=== PATIENT | female | born 1975 | race Caucasian/White ===

== ENCOUNTER → 2020-09-12 13:55 | Outpatient (REF) | payer MEDICAID, SELFPAY | LOC: HO.SL 13:55 | PROVIDERS: PCP Internal Medicine; Visit Provider Internal Medicine | DX: G47.10 Hypersomnia, unspecified (principal); R06.81 Apnea, not elsewhere classified | CPT/HCPCS: 95806 ==

== ENCOUNTER → 2021-04-22 13:57 | Outpatient (BNVA) | payer MEDICAID, SELFPAY | PROVIDERS: PCP Internal Medicine | DX: F17.210 Nicotine dependence, cigarettes, uncomplicated (principal); Z87.898 Personal history of other specified conditions | CPT/HCPCS: 99212 ==

== ENCOUNTER 2021-06-27 15:40 | Emergency (ER) | payer MEDICAID, SELFPAY ==
--- NOTE | 2021-06-27 | ECG_ITS ---
Test Reason : dizzyness Blood Pressure : / mmHG Vent. Rate : 062 BPM Atrial Rate : 062 BPM P-R Int : 138 ms QRS Dur : 090 ms QT Int : 394 ms P-R-T Axes : -16 060 033 degrees QTc Int : 399 ms Normal sinus rhythm Normal ECG When compared with ECG of 07-DEC-2014 03:18, Vent. rate has decreased BY 35 BPM QT has shortened Referred By: Generic ED Physician Electronically Signed By:CHARLOTTE WILLIAM MD
[2021-06-27 15:45] VITALS: BP 167/96; PULSE 80; RESP 16; TEMP 36.4; O2SAT 99; BMI 25.2
[2021-06-27 19:23] LABS: MANUAL DIFF FLAG NO
[2021-06-27 19:25] LABS: Basophils Absolute Auto 0.1 X10*3/uL (0.0-0.2); Basophils Percent Auto 0.4 % (0-2); Eosinophils Absolute Auto 0.1 X10*3/uL (0.0-0.4); Eosinophils Percent Auto 0.4 % (0-4); Hematocrit 38.6 % (37.0-47.0); Hemoglobin 12.8 g/dl (12.0-16.0); Imm Gran Abs Auto 0.05 X10*3/uL (0.00-0.03); Imm Gran Pct Auto 0.4 % (0.0-0.4); Lymphocytes Absolute Auto 2.6 X10*3/uL (1.2-4.9); Lymphocytes Percent Auto 18.5 % (20-40); Mean Corpuscular HGB Conc 33.2 g/dl (31.0-35.0); Mean Corpuscular Hemoglobin 31.4 pg (27.0-33.0); Mean Corpuscular Volume 94.6 fL (80.0-98.0); Mean Platelet Volume 8.8 fL (9.4-12.3); Monocytes Absolute Auto 0.6 X10*3/uL (0.1-1.2); Neutrophils Absolute Auto 10.5 x10*3/uL (2.0-8.3); Neutrophils Percent Auto 76.3 % (45-73); Platelet Count 318 X10*3/uL (160-400); Red Blood Count 4.08 X10*6/uL (4.20-5.50); Red Cell Distribution Width 12.9 % (11.0-16.0); White Blood Count 13.8 X10*3/uL (4.8-10.8)
[2021-06-27 19:38] LABS: Anion Gap 12 (12-20); Blood Urea Nitrogen 12 mg/dL (9-16); COVID-19 Test Negative (Negative); Calcium 9.9 mg/dL (8.4-10.2); Carbon Dioxide 28 mmol/L (22-29); Chloride 105 mmol/L (96-108); Creatinine Clr Calc Pharmacy 94.6; Estimated Glomerular Filt Rate > 60; Glucose Random 123 mg/dL (60-115); Potassium 4.9 mmol/L (3.3-5.1); Sodium 140 mmol/L (135-145)
--- NOTE | 2021-06-27 19:52 | ED.GENADULT ---
HPI - General Adult General Chief complaint: Dizziness Stated complaint: shaky,just doesnt feel right Time Seen by Provider: 06/27/21 19:40 Source: patient Mode of arrival: ambulatory Limitations: no limitations History of Present Illness HPI narrative: 45 yo female with a history of former alcohol use, anxiety, depression, high blood pressure here with reports of feeling dizzy, weak, lightheaded and shaky which occurred around 145 this afternoon. Patient tells me now she is feeling improved although overall tired. She denies any associated chest pain, shortness of breath, palpitations, headache, vomiting at the time of this episode. She tells me she has been eating and drinking normally. She has been taking her medications as prescribed. 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 Related Data Previous Rx's Medication Instructions Recorded oxybutynin chloride 10 mg 10 mg PO BID 90 Days #180 tab 04/29/21 tablet,extended release 24 hr nitrofurantoin 100 mg PO Q12H 5 Days #10 cap 06/27/21 monohydrate/macrocrystals 100 mg capsule (Macrobid) Allergies Allergy/AdvReac Type Severity Reaction Status Date / Time No Known Allergies Allergy Unverified 06/27/21 15:45 Review of Systems Review of Systems: Yes all other systems are reviewed and are negative Constitutional: Constitutional: Reports no additional constitutional complaints, Denies body ache(s), Denies chills, Denies fever(s), Denies headache(s) and Reports weakness Eyes: Eyes: Reports no additional eye complaints and Denies change in vision ENT: Reports system reviewed and no additional complaints, except as documented, Reports dizziness, Denies headache(s), Denies nasal congestion, Denies nasal discharge and Denies neck pain Cardiovascular: Cardiovascular: Reports no additional cardiovascular complaints, Denies chest pain, Denies leg edema and Denies dyspnea Respiratory: Respiratory: Reports no additional respiratory complaints, Denies cough and Denies dyspnea Gastrointestinal: Gastrointestinal: Reports no additional gastrointestinal complaints, Denies abdominal pain, Denies diarrhea, Denies nausea and Denies vomiting Genitourinary: Genitourinary: Reports no additional female genitourinary complaints and Denies urinary incontinence Musculoskeletal: Musculoskeletal: Reports no additional musculoskeletal complaints, Denies back pain, Denies arthralgias, Denies joint swelling, Denies neck pain, Denies numbness and Denies tingling Integumentary/Breasts: Skin/Breast: Reports system reviewed and no additional complaints, except as docu and Denies rash Neurologic: Reports system reviewed and no additional complaints, except as documented, Reports dizziness, Denies headache(s), Denies numbness, Denies tingling and Reports weakness PMFSH Past Medical History Attestation statement: The following information was validated with the patient. Source: old records reviewed and nursing notes reviewed Medical History History of nocturia Social History Social History Alcohol intake: former Use of substances other than those prescribed or required for medical reasons: Yes Substance Use Type: Marijuana Substance Use Frequency: Occasionally Last Used Substance: Unknown Advance Directives: No Advance Directives Information Provided: No Physical Exam ED Vital Signs: Vital Signs - 24 hr 06/27/21 15:45 06/27/21 20:22 Temperature 97.6 F 99.1 F Pulse Rate 80 64 Respiratory Rate 16 18 Blood Pressure 167/96 H 156/88 H Pulse Oximetry 99 98 BMI result Body Mass Index 25.2 Const General: cooperative, healthy appearing, comfortable and no acute distress Orientation/consciousness: patient oriented x3 Limitations: no limitations HENMT Head: Yes normal to inspection Ears: hearing grossly normal bilaterally and TM's normal bilaterally General nose exam: Normal external nose present Face and sinus: Yes normal facial exam Mouth: Normal oral and palatal mucosa present Throat: Yes posterior oropharynx normal, Yes tonsils normal and Yes uvula midline Eyes General: appearance normal, both eyes and all related structures Pupils: Equal, round and reactive pupils present Neck Neck: Yes normal visual inspection, Yes full ROM, Yes no lymphadenopathy and Yes no meningeal signs Chest Chest palpation & inspection: normal inspection of the chest Resp Effort & Inspection: normal respiratory effort Auscultation: clear to auscultation bilaterally Cardio Rate: regular rate Rhythm: regular rhythm Peripheral pulses: Peripheral pulses 2+ throughout GI Inspection: Yes normal to inspection Palpation (GI): Soft to palpation and nontender General: Yes no CVA tenderness Back/Spine/Pelvis Back: no CVA tenderness Thoracic/Lumbar Spine: thoracic and lumbar spine normal to inspection Skin General skin exam: no rashes or lesions noted Neuro General: patient oriented x3, moves all extremities and no meningeal signs Cranial nerves: Yes CN's II-XII intact bilaterally, Yes Equal, round and reactive pupils present, Yes Bilaterally intact EOM present, Yes Nystagmus not present, Yes Normal facial strength present and Yes Midline tongue present Cognition (Neuro): normal cognition Gait exam (Neuro): Normal gait present Motor exam (neuro): 5/5 motor strength present throughout Sensory Exam: Normal double simultaneous stimulation for sensation Coordination: [id number] test normal, [id number] test normal and tandem gait normal Extrem General: Yes normal to inspection, Yes no pedal edema and Yes no calf tenderness Course Course Course Narrative: 45-year-old female here with episode of dizziness, weakness, feeling shaky and lightheaded which occurred around 1:45 this afternoon and self-resolved without any intervention. Patient is now feeling tired but no other complaints. Will check labs, EKG, UA, COVID screen. Vitals are stable. Normal neurological exam. Nonfocal on exam. 2130-labs unremarkable. EKG shows no ischemic changes. COVID screen is negative. UA is consistent with UTI. Patient denies any symptoms we will treat with course of antibiotics. Overall she is feeling improved. I did recommend she follow-up with her primary care doctor. Reviewed worrisome signs and symptoms of when to return to the emergency department. Comfortable discharge home. Medical Decision Making MDM Narrative Medical decision making narrative: Less likely ACS with negative troponin, normal EKG and symptoms greater than 6 hours ago Less likely ICH versus CVA with normal neurological exam and resolved symptoms which were nonfocal and atypical for of the above Medical Records Medical records reviewed: Yes I reviewed the patient's medical records. Lab Data Lab results reviewed: Yes I reviewed the patient's lab results. Result diagrams: 06/27/21 19:19 06/27/21 19:19 Labs: Lab Results 06/27/21 06/27/21 06/27/21 Range/Units 19:19 19:19 19:19 WBC 13.8 H (4.8-10.8) X10*3/uL RBC 4.08 L (4.20-5.50) X10*6/uL Hgb 12.8 (12.0-16.0) g/dl Hct 38.6 (37.0-47.0) % MCV 94.6 (80.0-98.0) fL MCH 31.4 (27.0-33.0) pg MCHC 33.2 (31.0-35.0) g/dl RDW 12.9 (11.0-16.0) % Plt Count 318 (160-400) X10*3/uL MPV 8.8 L (9.4-12.3) fL Immature Gran % (Auto) 0.4 (0.0-0.4) % Neut % (Auto) 76.3 H (45-73) % Lymph % (Auto) 18.5 L (20-40) % Smyth % (Auto) 4.0 (2-11) % Eos % (Auto) 0.4 (0-4) % Baso % (Auto) 0.4 (0-2) % Lymph # (Auto) 2.6 (1.2-4.9) X10*3/uL Smyth # (Auto) 0.6 (0.1-1.2) X10*3/uL Eos # (Auto) 0.1 (0.0-0.4) X10*3/uL Baso # (Auto) 0.1 (0.0-0.2) X10*3/uL Abs Immat Gran (auto) 0.05 H (0.00-0.03) X10*3/uL Absolute Neuts (auto) 10.5 H (2.0-8.3) x10*3/uL Absolute Nucleated RBC 0.000 (0.0-0.012) X10*3/uL Nucleated RBC % (auto) 0.0 (0.0-0.2) /100WBC Sodium 140 (135-145) mmol/L Potassium 4.9 (3.3-5.1) mmol/L Chloride 105 (96-108) mmol/L Carbon Dioxide 28 (22-29) mmol/L Anion Gap 12 (12-20) BUN 12 (9-16) mg/dL Creatinine 0.69 (0.5-1.4) mg/dL Estim Creat Clear Calc 94.6 Estimated GFR > 60 Random Glucose 123 H (60-115) mg/dL Calcium 9.9 (8.4-10.2) mg/dL Total Bilirubin 0.5 (0.0-1.0) mg/dL Direct Bilirubin 0.2 (0.0-0.5) mg/dL AST 16 (5-31) U/L ALT 16 (0-31) U/L Alkaline Phosphatase 51 (39-117) U/L Troponin I High Sens (<3.5-17.0) ng/L Total Protein 7.2 (6.5-8.0) g/dL Albumin 4.6 (3.5-5.0) g/dL Urine Color Urine Appearance Urine pH (5.0-8.0) Ur Specific [place] (1.005-1.025) Urine Protein (NEG-TRACE) MG/DL Urine Glucose (UA) (NEG) MG/DL Urine Ketones (NEG) MG/DL Urine Blood (NEG) Urine Nitrite (NEG) Ur Leukocyte Esterase (NEG) Urine RBC (0) /HPF Urine WBC (0-4) /HPF Ur Squamous Epith Cells /LPF Amorphous Sediment /LPF Urine Bacteria /LPF COVID-19 (MABEL) Negative (Negative) COVID-19 Clin Com See Note 06/27/21 06/27/21 Range/Units 19:19 20:25 WBC (4.8-10.8) X10*3/uL RBC (4.20-5.50) X10*6/uL Hgb (12.0-16.0) g/dl Hct (37.0-47.0) % MCV (80.0-98.0) fL MCH (27.0-33.0) pg MCHC (31.0-35.0) g/dl RDW (11.0-16.0) % Plt Count (160-400) X10*3/uL MPV (9.4-12.3) fL Immature Gran % (Auto) (0.0-0.4) % Neut % (Auto) (45-73) % Lymph % (Auto) (20-40) % Smyth % (Auto) (2-11) % Eos % (Auto) (0-4) % Baso % (Auto) (0-2) % Lymph # (Auto) (1.2-4.9) X10*3/uL Smyth # (Auto) (0.1-1.2) X10*3/uL Eos # (Auto) (0.0-0.4) X10*3/uL Baso # (Auto) (0.0-0.2) X10*3/uL Abs Immat Gran (auto) (0.00-0.03) X10*3/uL Absolute Neuts (auto) (2.0-8.3) x10*3/uL Absolute Nucleated RBC (0.0-0.012) X10*3/uL Nucleated RBC % (auto) (0.0-0.2) /100WBC Sodium (135-145) mmol/L Potassium (3.3-5.1) mmol/L Chloride (96-108) mmol/L Carbon Dioxide (22-29) mmol/L Anion Gap (12-20) BUN (9-16) mg/dL Creatinine (0.5-1.4) mg/dL Estim Creat Clear Calc Estimated GFR Random Glucose (60-115) mg/dL Calcium (8.4-10.2) mg/dL Total Bilirubin (0.0-1.0) mg/dL Direct Bilirubin (0.0-0.5) mg/dL AST (5-31) U/L ALT (0-31) U/L Alkaline Phosphatase (39-117) U/L Troponin I High Sens < 3.5 (<3.5-17.0) ng/L Total Protein (6.5-8.0) g/dL Albumin (3.5-5.0) g/dL Urine Color YELLOW Urine Appearance HAZY Urine pH 7.0 (5.0-8.0) Ur Specific [place] 1.015 (1.005-1.025) Urine Protein NEG (NEG-TRACE) MG/DL Urine Glucose (UA) NEG (NEG) MG/DL Urine Ketones NEG (NEG) MG/DL Urine Blood TRACE (NEG) Urine Nitrite NEG (NEG) Ur Leukocyte Esterase 3+ H (NEG) Urine RBC 0-2 (0) /HPF Urine WBC 5-9 H (0-4) /HPF Ur Squamous Epith Cells 3+ /LPF Amorphous Sediment TRACE /LPF Urine Bacteria 1+ /LPF COVID-19 (MABEL) (Negative) COVID-19 Clin Com ECG Data Attestation: I personally reviewed and interpreted this ECG as follows: Interpretation: Normal sinus rhythm with a rate of 62, normal HI, normal QRS, normal QT Discharge Plan Discharge Clinical Impression: Dizziness, UTI (urinary tract infection) Patient Disposition: Home, Self-Care Instructions: Urinary Tract Infection in Women (DC), Lightheadedness (ED) Additional Instructions: Your lab work, EKG are all normal. Her urine does show signs of infection. You are prescribed an antibiotic. Increase fluids and rest. Please follow-up with primary care doctor in 1-2 weeks Prescriptions: New nitrofurantoin monohyd/m-cryst [Macrobid] 100 mg capsule 100 mg PO Q12H 5 Days Qty: 10 0RF Rx Instructions: must administer with a meal/food No Action oxybutynin chloride 10 mg tablet extended release 24hr 10 mg PO BID 90 Days Qty: 180 2RF Referrals: Jhoana Gamez MD [Primary Care Provider] - 1 week (For re-evaluation) Stand Alone Forms: Work/School Release Interventions: ED Discharge Assessment Last Done: 06/27/21 21:23 Discharge Date/Time: 06/27/21 21:23
[2021-06-27 20:22] VITALS: BP 156/88; PULSE 64; RESP 18; TEMP 37.3; O2SAT 98
[2021-06-27 20:40] LABS: Appearance Urine HAZY; Color Urine YELLOW; Glucose Urine UA NEG (NEG); Leukocyte Esterase Urine 3+ (NEG); Nitrite Urine NEG (NEG); Specific Gravity - Urine 1.015 (1.005-1.025); UACC Culture Trigger YES; Urine Blood TRACE (NEG); Urine Ketones NEG (NEG); Urine Protein NEG (NEG-TRACE)
[2021-06-27 20:47] LABS: Alanine Aminotransferase 16 U/L (0-31); Albumin Level 4.6 g/dL (3.5-5.0); Alkaline Phosphatase 51 U/L (39-117); Aspartate Amino Transferase 16 U/L (5-31); Bilirubin Direct 0.2 mg/dL (0.0-0.5); Bilirubin Total 0.5 mg/dL (0.0-1.0); Total Protein 7.2 g/dL (6.5-8.0)
[2021-06-27 20:49] LABS: Bacteria Urine 1+ /LPF; Squamous Epithelial Cell Urine 3+ /LPF
[2021-06-27 20:50] LABS: Amorphous Sediment Urine TRACE /LPF; RBC Urine 0-2 /HPF (0)
[2021-06-27 20:55] LABS: Troponin-I High Sensitivity < 3.5 ng/L (<3.5-17.0)
== END 2021-06-27 21:23 | disposition home or self-care (01) ==
PROVIDERS: Nurse Practitioner Family; Emergency Provider Emergency Medicine Emergency Medical Services; PCP Internal Medicine
DX: N39.0 Urinary tract infection, site not specified (principal); R42 Dizziness and giddiness; Z20.822 Contact with and (suspected) exposure to COVID-19
CPT/HCPCS: 80048; 80076; 81001; 84484; 85025; 87086; 87635; 93005; 99283; 99285

== ENCOUNTER 2021-08-13 15:14 | Outpatient (REF) | payer MEDICAID, SELFPAY ==
--- NOTE | ~2021-08-13 | MM_ITS ---
EXAMINATION: MM SCREENING DIGITAL BREAST TOMOSYNTHESIS, BILATERAL CLINICAL INFORMATION: Screening. Asymptomatic. The lifetime risk of breast cancer based on the Tyrer-Cuzick Model is 11%. COMPARISON: Mammography: 01/24/2019, 01/11/2018, 10/25/2012 TECHNIQUE: Digital breast tomosynthesis is performed in both the craniocaudal and mediolateral oblique views along with computer-aided detection (CAD). Synthesized 2D images are generated from the tomosynthesis. FINDINGS: The breasts are heterogeneously dense, which may obscure small masses (ACR BI-RADS breast composition Category c). There are no significant masses, abnormal calcifications, or other abnormalities. There are scattered shifting fibroglandular parenchymal densities overall similar to prior studies. No developing density or interval architectural abnormality. The axilla and skin contours are unremarkable. MM/MM tomosynthesis screening BI IMPRESSION: No mammographic evidence of malignancy. ASSESSMENT: BI-RADS 1: Negative RECOMMENDATION: Routine annual mammography screening. This patient's information was entered into a reminder system with a target due date for their next mammogram.
== END 2021-08-13 15:15 | disposition home or self-care (01) ==
LOC: HO.MAMMO 15:14
PROVIDERS: Visit Provider Internal Medicine
DX: Z12.31 Encounter for screening mammogram for malignant neoplasm of breast (principal)
CPT/HCPCS: 77063; 77067

== ENCOUNTER 2021-09-03 14:16 | Outpatient (REF) | payer MEDICAID, SELFPAY ==
[2021-09-04 14:39] LABS: CT PCR NOT DETECTED (Not Detect.); NG PCR NOT DETECTED (Not Detect.)
[2021-09-05 09:17] LABS: BV Int Neg Control Negative (Negative); BV Int Pos Control Positive (Positive)
[2021-09-11 01:12] LABS: HPV 16 RNA NOT DETECTED (NOT DETECTED); HPV mRNA E6/E7 rflx Detected (Not Detected)
== END 2021-09-03 14:17 | disposition home or self-care (01) ==
LOC: HO.LAB 14:16
PROVIDERS: PCP Internal Medicine; Visit Provider Advanced Practice Midwife
DX: Z01.411 Encounter for gynecological examination (general) (routine) with abnormal findings (principal); Z11.51 Encounter for screening for human papillomavirus (HPV); R10.2 Pelvic and perineal pain; N89.8 Other specified noninflammatory disorders of vagina
CPT/HCPCS: 87480; 87491; 87510; 87591; 87624; 87625; 87660; 88142

== ENCOUNTER 2021-10-15 13:43 | Outpatient (REF) | payer MEDICAID, SELFPAY | END 2021-10-15 13:44 | disposition home or self-care (01) | LOC: HO.LAB 13:43 | PROVIDERS: PCP Internal Medicine; Visit Provider Obstetrics & Gynecology | DX: R87.610 Atypical squamous cells of undetermined significance on cytologic smear of cervix (ASC-US) (principal); R87.810 Cervical high risk human papillomavirus (HPV) DNA test positive | CPT/HCPCS: 57454; 88305 ==

== ENCOUNTER → 2021-11-06 12:49 | Outpatient (BNVA) | payer MEDICAID, SELFPAY | PROVIDERS: PCP Internal Medicine; Visit Provider Obstetrics & Gynecology | DX: N87.0 Mild cervical dysplasia (principal) | CPT/HCPCS: 99212 ==

== ENCOUNTER 2021-11-19 11:20 | Outpatient (REF) | payer MEDICAID, SELFPAY ==
--- NOTE | ~2021-11-19 | US_ITS ---
EXAMINATION: US PELVIS CLINICAL INFORMATION: Pelvic and perineal pain. History of endometrial ablation. COMPARISON: None TECHNIQUE: Ultrasound of the pelvis is performed using both transabdominal and transvaginal transducers along with Doppler. Transvaginal imaging is performed due to inadequate visualization transabdominally. FINDINGS: Uterus: The uterus is anteverted and measures 7.4 cm in length, 3.8 cm in AP, and 4.7 cm in transverse dimension. The double wall endometrium is not visualized due to previous ablation. There are small nabothian cysts seen in the cervix. The uterus is smooth in contour and has normal myometrial echogenicity. No visible fibroid. Adnexa: Both ovaries are visualized. There is normal color-flow to the adnexa. There is no ovarian torsion. There is no pelvic ascites or fluid collection. Right ovary measures 2.7 x 1.4 x 1.6 cm and volume 3.2 mL. There is an anechoic cyst measuring 0.8 x 0.5 x 0.8 cm. Previously, the right ovary measured 2.4 x 1.3 x 2.6 cm. Left ovary measures 3.1 x 2.0 x 2.9 cm and volume 9.4 mL. There is an anechoic cyst measuring 2.7 x 1.7 x 2.1 cm. Previously, the left ovary measured 3.3 x 2.3 x 3.1 cm. There is no free fluid in the cul-de-sac. US/US pelvic and transvaginal IMPRESSION: Bilateral ovarian cysts. Small nabothian cysts in the cervix. The uterus is unremarkable. The endometrium is not visualized due to previous endometrial ablation.
== END 2021-11-19 11:21 | disposition home or self-care (01) ==
LOC: HO.US 11:20
PROVIDERS: Visit Provider Advanced Practice Midwife
DX: R10.2 Pelvic and perineal pain (principal)
CPT/HCPCS: 76830; 76856

== ENCOUNTER 2022-02-05 09:15 | Day surgery (SDC) | payer MEDICAID, SELFPAY ==
--- NOTE | 2022-02-04 12:15 | HO.ANESPROP2 ---
Documented by User: Wendy Ramirez NP 02/04/22 12:20 HPI - Anesthesia Eval Consult details Narrative: 46yo F for Colonoscopy PMFSH Active Problems Active Problems: All Active Problems (Updated 02/04/22 @ 11:22 by Tricia Sanabria RN) Encounter for annual routine gynecological examination (Acute) Vaginal discharge (Acute) Pelvic pain in female (Acute) ASCUS with positive high risk HPV cervical (Acute) Dysplasia of cervix, low grade (KARLA 1) (Acute) Encounter to discuss test results (Acute) Bilateral ovarian cysts (Acute) History of nocturia (Acute) Past Medical History Medical History Cervical high risk HPV (human papillomavirus) test positive History of depression History of nocturia Hypertension Neuropathy Overactive bladder Family History Family History Mother History of breast cancer Maternal Grandmother History of breast cancer Surgical History Surgical History H/O thumb surgery History of carpal tunnel release of both wrists History of endometrial ablation Hx of tubal ligation Social History Social History Alcohol intake: former Patient Tobacco Use Status: Current everyday Tobacco user Cigarettes Per Day: 3 Substance Use Type: Marijuana Are you DNR?: No Advance Directives: No Advance Directives Information Provided: Yes Recently lost weight without trying: No Nutrition Risks: No Nutritional Risk Patient : No Meds Allergies Allergy/AdvReac Type Severity Reaction Status Date / Time No Known Allergies Allergy Verified 11/26/21 11:31 Home Medications Medication Instructions Recorded Confirmed Last Taken Type atenolol 25 mg tablet 25 mg PO DAILY 09/03/21 02/05/22 02/05/22 History atorvastatin 40 mg tablet 40 mg PO DAILY 09/03/21 02/05/22 02/04/22 History bupropion HCl 150 mg 24 hr tablet, 150 mg PO QAM 09/03/21 02/05/22 02/04/22 History extended release cyclobenzaprine 10 mg tablet 10 mg PO BEDTIME 09/03/21 02/05/22 02/02/22 History gabapentin 300 mg capsule 300 mg PO TID 09/03/21 02/05/22 02/04/22 History meloxicam 15 mg tablet 15 mg PO DAILY 09/03/21 02/05/22 02/02/22 History sertraline 100 mg tablet 300 mg PO TID 09/03/21 02/05/22 02/04/22 History Exam Exam Date and Time: February 04, 2022 1215 Pertinent Lab Results Pertinent Lab Results: Laboratory Tests 06/27/21 06/27/21 19:19 19:19 WBC 13.8 H Hgb 12.8 Hct 38.6 Plt Count 318 Sodium 140 Potassium 4.9 Chloride 105 Carbon Dioxide 28 BUN 12 Creatinine 0.69 Narrative Narrative: EKG 06/2021 Vent. Rate : 062 BPM ? ? Atrial Rate : 062 BPM ?? P-R Int : 138 ms? QRS Dur : 090 ms ? ? QT Int : 394 ms ? ? ? P-R-T Axes : -16 060 033 degrees ?? QTc Int : 399 ms ? Normal sinus rhythm Normal ECG When compared with ECG of 07-DEC-2014 03:18, Vent. rate has decreased BY? 35 BPM QT has shortened Assessment and Plan Assessment Anesthesia Assessment: Chart Reviewed Documented by User: Janette Campo MD 02/05/22 11:32 PMFSH Past Medical History Medical History Cervical high risk HPV (human papillomavirus) test positive History of depression History of nocturia Hypertension Neuropathy Overactive bladder Family History Family History Mother History of breast cancer Maternal Grandmother History of breast cancer Surgical History Surgical History H/O thumb surgery History of carpal tunnel release of both wrists History of endometrial ablation Hx of tubal ligation History of Problems with Anesthesia: No Social History Social History Alcohol intake: former Patient Tobacco Use Status: Current everyday Tobacco user Cigarettes Per Day: 3 Substance Use Type: Marijuana Are you DNR?: No Advance Directives: No Advance Directives Information Provided: Yes Recently lost weight without trying: No Nutrition Risks: No Nutritional Risk Patient : No Meds Allergies Allergy/AdvReac Type Severity Reaction Status Date / Time No Known Allergies Allergy Verified 11/26/21 11:31 Home Medications Medication Instructions Recorded Confirmed Last Taken Type atenolol 25 mg tablet 25 mg PO DAILY 09/03/21 02/05/22 02/05/22 History atorvastatin 40 mg tablet 40 mg PO DAILY 09/03/21 02/05/22 02/04/22 History bupropion HCl 150 mg 24 hr tablet, 150 mg PO QAM 09/03/21 02/05/22 02/04/22 History extended release cyclobenzaprine 10 mg tablet 10 mg PO BEDTIME 09/03/21 02/05/22 02/02/22 History gabapentin 300 mg capsule 300 mg PO TID 09/03/21 02/05/22 02/04/22 History meloxicam 15 mg tablet 15 mg PO DAILY 09/03/21 02/05/22 02/02/22 History sertraline 100 mg tablet 300 mg PO TID 09/03/21 02/05/22 02/04/22 History Exam Airway Mallampati Class: II (Edentulous) TM Dist: >3cm Neck ROM: Full Denture: Upper and Lower Loose/Missing/Broken Teeth: Yes, Upper and Lower Heart: RRR Lungs: CTA Assessment and Plan Assessment Anesthesia Assessment: Anesthesia Plan Discussed Final Anesthetic Review History of Problems with Anesthesia: No NPO: Yes ASA Class: II Final Preanesthetic Review: Meds/Allgs Chart Reviewed, Consent Obtained/Reviewed and Anes Risks/Benef Reviewed Patient Risk: Low Procedure Risk: Low Anesthetic Plan Anesthetic Plan: MAC: Disposition: Standard PACU
[2022-02-05 07:15] VITALS: BMI 24.9
[2022-02-05 09:30] VITALS: BP 120/76; PULSE 79; RESP 17; TEMP 36; O2SAT 98
[2022-02-05] MEDS: Lactated Ringers 1,000 ML 100 ML IVCONT (09:49)
--- NOTE | 2022-02-05 10:00 | PC.NURSE ---
surgery on left thumb 01/10/2022 case on left side denies numbness tingling good cms
--- NOTE | 2022-02-05 11:56 | PM.OP ---
Brief Operative Note Date of Service: 02/05/22 Pre-op diagnosis: Screening Post-op diagnosis: other (Polyp) Procedure: Colonoscopy to the cecum and TI with cold snare polypectomy Surgeon: Darrius Huynh Anesthesia: MAC Was an Manager [employer] used for this Procedure?: No Estimated blood loss (mL): 2.0 Pathology: other (A. Cecal polyp near appendiceal orifice) Condition: stable Disposition: PACU
[2022-02-05 12:03] VITALS: BP 121/59; PULSE 75; RESP 20; TEMP 36.2; O2SAT 99
[2022-02-05 12:17] VITALS: BP 120/71; PULSE 71; RESP 16; TEMP 36.2; O2SAT 99
--- NOTE | 2022-02-05 12:30 | OP_ITS ---
SURGEON: Darrius Huynh MD INDICATIONS: The patient presents for evaluation of colorectal cancer screening. Full consent has been obtained from her for this, including risks of bleeding and perforation. PREOPERATIVE DIAGNOSIS: Colorectal cancer screening. POSTOPERATIVE DIAGNOSIS: PROCEDURE PERFORMED: Colonoscopy to the cecum and terminal ileum with cold snare polypectomy. ESTIMATED BLOOD LOSS: COMPLICATIONS: ANESTHESIA: Monitored anesthesia care. ASSISTANTS: SPECIMENS: POSTOPERATIVE DIAGNOSES: Colorectal cancer screening, colon polyp, suboptimal prep, internal hemorrhoids. DESCRIPTION OF PROCEDURE: The patient was placed in the left lateral decubitus position the digital rectal exam revealed no abnormalities. The Olympus video pediatric colonoscope was entered into the rectum and advanced easily to the cecum. Once in the cecum I did identify cecal pouch. The terminal ileum was cannulated and appeared normal. The scope was withdrawn back in the colon. The ileocecal valve appeared normal. The majority of the cecum was well visualized, but there was some residual liquid stool. Just adjacent to the appendiceal orifice was an approximately 5 or 6 mm probable adenomatous polyp, which was removed by cold snare polypectomy and recovered by suction. The polypectomy site appeared clean, without any sign of residual polyp nor significant bleeding. The scope was then slowly withdrawn assessing all mucosal surfaces carefully. Unfortunately, preparation was suboptimal in many parts of the colon with a lot of liquid brown stool and some solid stool. I did not visualize any other polyps, colitis, nor angiodysplasias, but the visualization was quite limited. In the rectum, the scope was retroflexed visualizing some small internal hemorrhoids, but no other pathology. Again visualization was limited there as well. The scope was straightened and withdrawn from the patient. She tolerated the procedure well and was returned to the recovery area in stable condition. IMPRESSION: 1. Colon polyp. 2. Suboptimal prep. 3. Small internal hemorrhoids. PLAN: The results of the pathology will be checked I would recommend a repeat colonoscopy with a better clean out at some point just to be sure no other polyps are present. She was advised not to use any aspirin or NSAIDs for 1 week. This has been discussed with her family. MD STEFANO Mcfarlane/PAWAN / [id number] [id number]
== END 2022-02-05 12:45 | disposition home or self-care (01) ==
PROVIDERS: PCP Internal Medicine; Visit Provider Internal Medicine
PROC: 0DJD8ZZ Inspection of Lower Intestinal Tract, Via Natural or Artificial Opening Endoscopic (ICD-10-PCS; CPT 45378; principal; 2022-02-05 10:40)
DX: Z12.11 Encounter for screening for malignant neoplasm of colon (principal); D12.0 Benign neoplasm of cecum; K64.8 Other hemorrhoids; I10 Essential (primary) hypertension; N32.81 Overactive bladder; F10.21 Alcohol dependence, in remission; Z79.899 Other long term (current) drug therapy; F17.210 Nicotine dependence, cigarettes, uncomplicated
CPT/HCPCS: 45385; 88305

== ENCOUNTER 2022-04-02 13:58 | Outpatient (REF) | payer MEDICAID, SELFPAY | END 2022-04-02 13:59 | disposition home or self-care (01) | LOC: HO.US 13:58 | PROVIDERS: Visit Provider Advanced Practice Midwife | DX: Z13.89 Encounter for screening for other disorder (principal) ==

== ENCOUNTER 2022-05-06 15:48 | Outpatient (REF) | payer MEDICAID, SELFPAY ==
[2022-05-06 16:51] LABS: Urine Cytology See Pathology rpt
== END 2022-05-06 15:49 | disposition home or self-care (01) ==
LOC: HO.LAB 15:48
PROVIDERS: PCP Internal Medicine; Visit Provider Nurse Practitioner Family
DX: R35.1 Nocturia (principal); N32.81 Overactive bladder; F17.210 Nicotine dependence, cigarettes, uncomplicated; Z87.898 Personal history of other specified conditions; Z79.899 Other long term (current) drug therapy
CPT/HCPCS: 51798; 88112; 99212

== ENCOUNTER 2022-12-03 12:58 | Outpatient (AMB) | payer MEDICAID, SELFPAY ==
--- NOTE | 2022-12-03 12:59 | A.OFFVIS_ITS ---
Intake Intake Visit Reasons: 6m/PVR Intake Note: Patient presents today for follow up OAB Urology Medications: Oxybutynin Blood thinner: none PVR: 0ml's Job Printer Apprentice Required: No Accompanied by: Self / Same As Patient Allergies No Known Allergies Allergy (Verified 12/03/22 21:06) Medication List - Last Reconciled 12/03/22 by YOUNG Coon atenolol 25 mg PO DAILY atorvastatin 40 mg PO DAILY bupropion HCl 150 mg PO QAM bupropion HCl 300 mg PO QAM cyclobenzaprine 10 mg PO BEDTIME gabapentin 300 mg PO TID meloxicam 15 mg PO DAILY oxybutynin chloride ER 15 mg PO BID 90 days prazosin 2 mg PO BEDTIME sertraline 300 mg PO TID HPI HPI Comments History of Present Illness Details Audra Mensah is a pleasant 47-year-old female patient of Dr. Gamez. She has a past medical history of HPV, depression, hypertension, neuropathy, and overactive bladder. She presents to the office today for follow-up regarding her overactive bladder. Patient reports compliance with 30mg of oxybutynin daily. She reports this to be working well for her urinary urgency and urinary frequency. Discussed with the patient other medication treatment options however patient reports to be doing well and wishes to continue on oxybutynin. In office urinalysis results reviewed with the patient today 3+ leukocytes negative nitrates. Patient denies any UTI like symptoms at this time. She currently denies urinary urgency, urinary frequency, incontinence, nocturia, hematuria, dysuria, foul smelling urine, changes to urinary stream, flank pain, fever, and or chills. She is happy with her current voiding parameters on 30 mg of oxybutynin daily. PVR 0 mL. She otherwise offers no other issues or concerns at this time. [facility] Medical History Cervical high risk HPV (human papillomavirus) test positive History of depression History of nocturia Hypertension Neuropathy Overactive bladder Surgical History H/O thumb surgery History of carpal tunnel release of both wrists History of endometrial ablation Hx of tubal ligation Family History Mother History of breast cancer Maternal Grandmother History of breast cancer Social History Alcohol intake: former Patient Tobacco Use Status: Current everyday Tobacco user Cigarettes Per Day: 3 Substance Use Type: Marijuana Review of Systems Const Reports no additional complaints Eyes Reports no additional complaints ENT Reports no additional complaints Card Reports as per HPI Resp Reports no additional complaints GI Reports no additional complaints Reports as per HPI Musc Reports no additional complaints Neuro Reports no additional complaints Psych Reports as per HPI Endo Reports no additional complaints Physical Exam Const General: cooperative, healthy appearing, comfortable, no acute distress, well developed, alert and awake Nutritional Appearance: average body habitus Orientation/consciousness: patient oriented x3 HEENT Head: Yes normal to inspection, Yes normocephalic and Yes atraumatic Ears: hearing grossly normal bilaterally Eyes General: appearance normal, both eyes and all related structures Neck Neck: Yes normal visual inspection and Yes trachea midline Chest Chest palpation & inspection: normal inspection of the chest Resp Effort & Inspection: normal respiratory effort and able to speak in complete sentences Cardio Rate: regular rate GI Inspection: Yes normal to inspection General: Yes no CVA tenderness Back/Spine/Pelvis Back: no CVA tenderness Cervical Spine: normal cervical lordosis Neuro General: patient oriented x3 Extrem General: Yes normal to inspection Psych Appearance: grossly normal and well kempt Mental Status: mental status grossly normal Speech and movement: Normal speech and movement present and Clear speech present; No Pressured speech present Affect: normal affect Thought process: Normal thought process present Thought content: Normal thought content present Insight: Good insight present (Psych) Judgement: Good judgement present (Psych) Office Procedures Post Void Residual Post Residual Void Post Void Residual (PVR): 0 96013-Ydjz Void Residual by ultrasound Results AMB Urinalysis, Automated UA Leukoctes 500 Kip/uL Last Edit by Cody Anton on 12/03/22 13:26 UA Nitrite Last Edit by Cody Anton on 12/03/22 13:26 UA Urobilinogen 0.2 mg/dL Last Edit by Cody Anton on 12/03/22 13:26 UA Protein 0 mg/dL Last Edit by Cody Anton on 12/03/22 13:26 UA pH 6.0 Last Edit by Cody Anton on 12/03/22 13:26 UA Blood 10 Sunil/uL Last Edit by Cody Anton on 12/03/22 13:26 UA Specific [place] 1.020 Last Edit by Cody Anton on 12/03/22 13:26 UA Ketone Negative Last Edit by Cody Anton on 12/03/22 13:26 UA Bilirubin 0 mg/dL Last Edit by Cody Anton on 12/03/22 13:26 UA Glucose 0 mg/dL Last Edit by Cody Anton on 12/03/22 13:26 Results Reviewed Results Reviewed: Laboratory Last Values Urine pH (Auto) 6.0 12/03/22 13:24 Specific [place] (Auto) 1.020 12/03/22 13:24 Urine Protein (Auto) 0 mg/dL 12/03/22 13:24 Glucose (UA)(Auto) 0 mg/dL 12/03/22 13:24 Urine Ketones (Auto) Negative 12/03/22 13:24 Urine Blood (Auto) 10 Sunil/uL 12/03/22 13:24 Urine Bilirubin (Auto) 0 mg/dL 12/03/22 13:24 Urine Urobilinogen (Auto) 0.2 mg/dL 12/03/22 13:24 Leukocyte Esterase (Auto) 500 Kip/uL 12/03/22 13:24 Assessment & Plan Assessment & Plan (1) Overactive bladder: Code(s): N32.81 - Overactive bladder (2) UTI (urinary tract infection): Code(s): N39.0 - Urinary tract infection, site not specified Plan In office urinalysis results reviewed with the patient today; as noted above; will send for urine culture; will wait culture results for treatment PVR 0 mL Continue oxybutynin 30 mg daily. Patient denies any UTI like symptoms at this time Will obtain retroperitoneal ultrasound for further assessment evaluation. Discussed UTI prevention with D mannose supplement, vitamin-C, increasing fluid intake, behavioral therapy with timed voiding, perineal hygiene and postcoital voiding, and management of constipation with stool softeners and increased fiber intake. Discussed, educated, instructed on the importance of drinking plenty of water daily. Follow-up in 1 month with imaging to be completed prior; or sooner with any issues, concerns, and or questions. Orders: Orders US retroperitoneal comp Today N32.81 - Overactive bladder, N39.0 - Urinary tract infection, site not specified Urine Culture Today N32.81 - Overactive bladder AMB Urinalysis Automated Today Z13.9 - Encounter for screening, unspecified AMB Post Void Residual by ultrasound Today N32.81 - Overactive bladder Patient Instructions: The patient had an opportunity to ask questions regarding the treatment plan. All questions were answered. Physical exam, labs, and imaging were discussed and reviewed in detail. As well as risks, benefits, and discussion of treatment choices. No major barriers to understanding were identified. The patient expressed understanding and agreement with the above treatment plan. The patient was made aware they should contact our office by phone for worsening of their current condition, the appearance of new symptoms, or with any questi ons or concerns. Compliance is encouraged with any medications and follow up testing that is ordered. It is a privilege to be allowed the opportunity to participate in? your urological care.? Again, if you have any questions or concerns If you have any questions or concerns please do not hesitate to contact me. The office is [phone]. This note is constructed using voice recognition software. While every effort has been made to ensure accuracy caisson worker errors may have been included. Yours sincerely, SOULEYMANE Coon-GLORIA Coding Level of Care Code Est Pt Level 4 (33390) Diagnoses Overactive bladder N32.81 UTI (urinary tract infection) N39.0 CPT Codes Post Residual Void - PVR CPT Code: 19885-Cazs Void Residual by ultrasound ([id number])
== END 2022-12-03 13:42 | disposition home or self-care (01) ==
PROVIDERS: PCP Internal Medicine; Visit Provider Nurse Practitioner Family
DX: N32.81 Overactive bladder (principal); N39.0 Urinary tract infection, site not specified
CPT/HCPCS: 99214

== ENCOUNTER 2022-12-03 12:58 | Outpatient (REF) | payer MEDICAID, SELFPAY | END 2022-12-03 12:59 | disposition home or self-care (01) | LOC: HO.LNP 12:58 | PROVIDERS: PCP Internal Medicine; Visit Provider Nurse Practitioner Family | DX: N32.81 Overactive bladder (principal); N39.0 Urinary tract infection, site not specified | CPT/HCPCS: 51798; 81003; 87086; 99214 ==

== ENCOUNTER 2022-12-10 14:30 | Outpatient (REF) | payer MEDICAID, SELFPAY ==
--- NOTE | ~2022-12-10 | US_ITS ---
EXAMINATION: US RETROPERITONEAL COMPLETE (RENAL) CLINICAL INFORMATION: Overactive bladder. COMPARISON: CT abdomen and pelvis 09/04/2015. TECHNIQUE: Real-time imaging of the kidneys and bladder. FINDINGS: RIGHT KIDNEY: 11.5 x 3.8 x 6.1 cm (SAG x AP x TRV). The kidney is normal in size, contour, and echogenicity. Renal cortical thickness is normal. No calculi or focal parenchymal lesions. A small 2 mm nonobstructing renal calculi seen at the time of the prior CT scan is not visualized. No hydronephrosis. LEFT KIDNEY: 11.0 x 4.9 x 5.2 cm (SAG x AP x TRV). The kidney is normal in size, contour, and echogenicity. Renal cortical thickness is normal. No calculi or focal parenchymal lesions. A small 2 mm nonobstructing renal calculi seen at the time of the prior CT scan is not visualized. No hydronephrosis. BLADDER: Well distended and normal. Bilateral ureteral jets are demonstrated. Prevoid bladder volume is 273 mL. Postvoid bladder volume is 25 mL. ADDITIONAL FINDING: Incidental note is made of probable uterine fibroids. US/US retroperitoneal comp IMPRESSION: 1. Normal-appearing kidneys. 2. Incidentally noted uterine fibroids.
== END 2022-12-10 14:31 | disposition home or self-care (01) ==
LOC: HO.US 14:30
PROVIDERS: PCP Internal Medicine; Visit Provider Nurse Practitioner Family
DX: N32.81 Overactive bladder (principal); N39.0 Urinary tract infection, site not specified
CPT/HCPCS: 76770

== ENCOUNTER 2023-01-07 09:24 | Outpatient (AMB) | payer MEDICAID, SELFPAY ==
--- NOTE | 2023-01-07 09:42 | A.OFFVIS_ITS ---
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 Accompanied by: Self / Same As Patient Allergies No Known Allergies Allergy (Verified 01/07/23 10:12) Medication List - Last Reconciled 01/07/23 by YOUNG Coon atenolol 25 mg PO DAILY atorvastatin 40 mg PO DAILY bupropion HCl 150 mg PO QAM bupropion HCl 300 mg PO QAM cyclobenzaprine 10 mg PO BEDTIME gabapentin 300 mg PO TID meloxicam 15 mg PO DAILY oxybutynin chloride ER 15 mg PO BID 90 days prazosin 2 mg PO BEDTIME sertraline 300 mg PO TID sulfamethoxazole-trimethoprim 400-80 mg (Bactrim) 1 tab PO BEDTIME 90 days HPI HPI Comments History of Present Illness Details Audra Mensah is a pleasant 47-year-old female patient of Dr. Gamez. She has a past medical history of HPV, depression, hyperte nsion, neuropathy, and overactive bladder. She presents to the office today for follow-up regarding her overactive bladder and recent urinary tract infection. Of note, patient was seen approximately 1 month ago at which time she was treated with full strength Bactrim for urinary tract infection and a retroperitoneal ultrasound was ordered for further assessment evaluation. These results were reviewed with the patient today. Bilateral kidneys with calculi, lesions, or hydronephrosis noted. The bladder is well distended and normal. Bilateral ureteral jets are demonstrated. Pre void bladder volume is approximately 275 mL. Postvoid bladder volume is approximately 25 mL. Incidental note is made of probable urine fibroids. Patient reports to be following up with INVESTOR RELATIONS COORDINATOR within the next month and will discuss at follow up. When asked patient reports to be having intermittent lower urinary tract symptoms (urinary urgency and frequency). In office urinalysis results reviewed with the patient today. PVR 0 mL. She is happy with her current voiding parameters on 30 mg of oxybutynin daily. PVR 0 mL. She otherwise offers no other issues or concerns at this time. [facility] Medical History Neuropathy Overactive bladder Cervical high risk HPV (human papillomavirus) test positive Hypertension History of depression History of nocturia Surgical History H/O thumb surgery History of carpal tunnel release of both wrists History of endometrial ablation Hx of tubal ligation Family History Mother History of breast cancer Maternal Grandmother History of breast cancer Social History Alcohol intake: former Patient Tobacco Use Status: Current everyday Tobacco user Cigarettes Per Day: 3 Substance Use Type: Marijuana Review of Systems Const Reports no additional complaints Eyes Reports no additional complaints ENT Reports no additional complaints Card Reports as per HPI Resp Reports no additional complaints GI Reports no additional complaints Reports as per HPI Musc Reports no additional complaints Neuro Reports no additional complaints Psych Reports as per HPI Endo Reports no additional complaints Physical Exam Const General: cooperative, healthy appearing, comfortable, no acute distress, well developed, alert and awake Nutritional Appearance: average body habitus Orientation/consciousness: patient oriented x3 HEENT Head: Yes normal to inspection, Yes normocephalic and Yes atraumatic Ears: hearing grossly normal bilaterally Eyes General: appearance normal, both eyes and all related structures Neck Neck: Yes normal visual inspection and Yes trachea midline Chest Chest palpation & inspection: normal inspection of the chest Resp Effort & Inspection: normal respiratory effort and able to speak in complete sen tences Cardio Rate: regular rate GI Inspection: Yes normal to inspection General: Yes no CVA tenderness Back/Spine/Pelvis Back: no CVA tenderness Cervical Spine: normal cervical lordosis Neuro General: patient oriented x3 Extrem General: Yes normal to inspection Psych Appearance: grossly normal and well kempt Mental Status: mental status grossly normal Speech and movement: Normal speech and movement present and Clear speech present; No Pressured speech present Affect: normal affect Thought process: Normal thought process present Thought content: Normal thought content present Insight: Good insight present (Psych) Judgement: Good judgement present (Psych) Office Procedures Post Void Residual Post Residual Void Post Void Residual (PVR): 0 [id number]-Spru Void Residual by ultrasound Results AMB Urinalysis, Automated UA Leukoctes 15 Kip/uL Last Edit by Cody Anton on 01/07/23 10:00 UA Nitrite Negative Last Edit by Cody Anton on 01/07/23 10:00 UA Urobilinogen 0.2 mg/dL Last Edit by Cody Gretchenjohn on 01/07/23 10:00 UA Protein 15 mg/dL Last Edit by Cody Anton on 01/07/23 10:00 UA pH 6.0 Last Edit by Cody Gretchenjohn on 01/07/23 10:00 UA Blood 0 Sunil/uL Last Edit by Cody Gretchenjohn on 01/07/23 10:00 UA Specific [place] 1.020 Last Edit by Cody Gretchenjohn on 01/07/23 10:00 UA Ketone Negative Last Edit by Cody Anton on 01/07/23 10:00 UA Bilirubin 0 mg/dL Last Edit by Cody Anton on 01/07/23 10:00 UA Glucose 0 mg/dL Last Edit by Cody Anton on 01/07/23 10:00 Results Reviewed Results Reviewed: Laboratory Last Values Urine pH (Auto) 6.0 01/07/23 09:47 Specific [place] (Auto) 1.020 01/07/23 09:47 Urine Protein (Auto) 15 mg/dL 01/07/23 09:47 Glucose (UA)(Auto) 0 mg/dL 01/07/23 09:47 Urine Ketones (Auto) Negative 01/07/23 09:47 Urine Blood (Auto) 0 Sunil/uL 01/07/23 09:47 Urine Nitrite (Auto) Negative 01/07/23 09:47 Urine Bilirubin (Auto) 0 mg/dL 01/07/23 09:47 Urine Urobilinogen (Auto) 0.2 mg/dL 01/07/23 09:47 Leukocyte Esterase (Auto) 15 Kip/uL 01/07/23 09:47 Date of Service: 12/10/22 EXAMINATION: US RETROPERITONEAL COMPLETE (RENAL) FINDINGS: RIGHT KIDNEY: 11.5 x 3.8 x 6.1 cm (SAG x AP x TRV). The kidney is normal in size, contour, and echogenicity. Renal cortical thickness is normal. No calculi or focal parenchymal lesions. A small 2 mm nonobstructing renal calculi seen at the time of the prior CT scan is not visualized. No hydronephrosis. LEFT KIDNEY: 11.0 x 4.9 x 5.2 cm (SAG x AP x TRV). The kidney is normal in size, contour, and echogenicity. Renal cortical thickness is normal. No calculi or focal parenchymal lesions. A small 2 mm nonobstructing renal calculi seen at the time of the prior CT scan is not visualized. No hydronephrosis. BLADDER: Well distended and normal. Bilateral ureteral jets are demonstrated. Prevoid bladder volume is 273 mL. Postvoid bladder volume is 25 mL. ADDITIONAL FINDING: Incidental note is made of probable uterine fibroids. IMPRESSION: 1. Normal-appearing kidneys. 2. Incidentally noted uterine fibroids. Assessment & Plan Assessment & Plan (1) Overactive bladder: Code(s): N32.81 - Overactive bladder Plan In office urinalysis results reviewed with the patient today; as noted above. PVR 0 mL. Recent retroperitoneal ultrasound results reviewed with the patient today; as noted above. Patient reports to be having intermittent urinary frequency and urgency discussed possible post UTI syndrome versus recurrent urinary tract infection. Will send urine for culture today. Start low-dose Bactrim as discussed and prescribed. Continue oxybutynin; discussed trial of other overactive bladder medication however patient declines at this time Discussed UTI prevention with D mannose supplement, vitamin-C, increasing fluid intake, behavioral therapy with timed voiding, perineal hygiene and postcoital voiding, and management of constipation with stool softeners and increased fiber intake. Follow-up in 3 months with PVR or sooner with any issues, concerns, and or questions. Orders: Orders AMB Post Void Residual by ultrasound Today N32.81 - Overactive bladder Urine Culture Today R10.2 - Pelvic and perineal pain AMB Urinalysis Automated Today Z13.9 - Encounter for screening, unspecified Medications: New sulfamethoxazole-trimethoprim 400-80 mg (Bactrim) 1 tab PO BEDTIME 90 days 90 tabs 0RF N39.0 - Urinary tract infection, site not specified Patient Instructions: The patient had an opportunity to ask questions regarding the treatment plan. All questions were answered. Physical exam, labs, and imaging were discussed and reviewed in detail. As well as risks, benefits, and discussion of treatment choices. No major barriers to understanding were identified. The patient expressed understanding and agreement with the above treatment plan. The patient was made aware they should contact our office by phone for worsening of their current condition, the appearance of new symptoms, or with any questions or concerns. Compliance is encouraged with any medications and follow up testing that is ordered. It is a privilege to be allowed the opportunity to participate in? your urological care.? Again, if you have any questions or concerns If you have any questions or concerns please do not hesitate to contact me. The office is [phone]. This note is constructed using voice recognition software. While every effort has been made to ensure accuracy nuisance wildlife trapper errors may have been included. Yours sincerely, SOULEYMANE Coon-GLORIA Coding Level of Care Code Est Pt Level 4 (09673) Diagnoses Overactive bladder N32.81 CPT Codes Post Residual Void - PVR CPT Code: 91010-Ndei Void Residual by ultrasound ([id number])
== END 2023-01-07 10:10 | disposition home or self-care (01) ==
PROVIDERS: PCP Internal Medicine; Visit Provider Nurse Practitioner Family
DX: Z13.9 Encounter for screening, unspecified (principal); N32.81 Overactive bladder
CPT/HCPCS: 99214

== ENCOUNTER 2023-01-07 09:24 | Outpatient (REF) | payer MEDICAID, SELFPAY | END 2023-01-07 09:25 | disposition home or self-care (01) | LOC: HO.LNP 09:24 | PROVIDERS: PCP Internal Medicine; Visit Provider Nurse Practitioner Family | DX: R10.2 Pelvic and perineal pain (principal); N32.81 Overactive bladder | CPT/HCPCS: 51798; 81003; 87086; 99212 ==

== ENCOUNTER 2023-01-27 12:26 | Outpatient (AMB) | payer MEDICAID, SELFPAY ==
[2023-01-27 12:28] VITALS: BP 122/74; BMI 26.6
--- NOTE | 2023-01-27 12:28 | MHC.OFFVIS ---
Intake Vital Signs 01/27/23 12:28 Height 5 ft 4 in Weight 155 lb BMI 26.6 BP 122/74 Intake Visit Reasons: Annual/ cotest Marketing Automation Specialist Required: No Information Interpreted: non-clinical & clinical Inside Sales: Inside Sales Present (Mandie STEPHENSON) Accompanied by: Self / Same As Patient Allergies No Known Allergies Allergy (Verified 01/27/23 12:32) Post menopausal: Yes HPI HPI Comments History of Present Illness Details Presenting for annual exam. No complaints. The patient had a renal ultrasound , the report mentioned probable uterine myoma. Last ultrasound done in 01/09 did not show any uterine myoma. Last Pap/HPV was ascus/HPV positive in 09/08, colpo/biopsy/ECC showed KARLA 1 Last Mammogram was BI-RADS 1 in 08/09 Last Colonoscopy was done in 02/08 [facility] Medical History (Updated 01/27/23 @ 12:42 by Cade Gomes MD) Neuropathy Overactive bladder Cervical high risk HPV (human papillomavirus) test positive Hypertension History of depression History of nocturia Surgical History H/O thumb surgery History of carpal tunnel release of both wrists History of endometrial ablation Hx of tubal ligation Family History Mother History of breast cancer Maternal Grandmother History of breast cancer Social History (Updated 01/27/23 @ 12:35 by Mandie Shaffer CMA) Household Members: Spouse Housing: Apartment Alcohol intake: former Patient Tobacco Use Status: Former Tobacco user Cigarettes Per Day: 3 Years Smoked: 30 Substance Use Type: Marijuana Current occupational status: employed Current occupation: [employer] Sexually active: Yes Sexual orientation: Straight/Heterosexual Gender identity: Female Female Reproductive History Menstrual Total pregnancies: 2 Full term: 2 Number of Living Children: 2 Date of last pap smear: 09/05/21 Date of Mammogram: 08/13/21 Review of Systems Const All systems reviewed & are unremarkable except as noted in HPI and below Card Reports as per HPI Resp Reports as per HPI GI Reports as per HPI and Reports no additional complaints Reports as per HPI Physical Exam Vital Signs: Last Vital Signs BP 122/74 01/27/23 12:28 BMI result Body Mass Index 26.6 Const General: cooperative, healthy appearing and comfortable Chest Chest palpation & inspection: normal inspection of the chest and normal palpation of entire chest wall Breast/axilla inspection: normal inspection of the breasts and normal inspection of the axillae Breast/axilla palpation: normal palpation of the breasts, normal palpation of the axillae and no axillary lymphadenopathy Resp Effort & Inspection: normal respiratory effort Auscultation: clear to auscultation bilaterally Percussion: percussion normal Cardio Palpation: normal PMI Rate: regular rate Rhythm: regular rhythm Heart sounds: no murmurs and no rubs Peripheral pulses: Peripheral pulses 2+ throughout GI Inspection: Yes normal to inspection Palpation (GI): Soft to palpation, nontender, no guarding, not rigid and No hepatosplenomegaly present Percussion: Yes normal to percussion Auscultation: normal bowel sounds Rectal Exam - Female: deferred General: Yes bladder normal to palpation External Female Exam: No lesion Speculum Exam - Vagina: normal appearance of the vagina, normal palpation, normal vaginal discharge and not erythematous Speculum Exam - Cervix: normal appearance of the cervix and normal palpation Bimanual exam- vagina & uterus: normal bimanual exam, normal palpation, uterine size normal, bladder normal to palpation, consistency normal and normal palpation Bimanual Exam- Adnexa, other: normal adnexae, no masses and no tenderness Assessment & Plan Assessment & Plan (1) Well woman exam: Code(s): Z01.419 - Encounter for gynecological examination (general) (routine) without abnormal findings Plan: Co testing done. Pelvic ultrasound ordered, instructions given the patient to schedule an ultrasound follow-up appointment. Counseled the patient about the recommended dietary allowance of 1200 mg of Calcium & 600 IU of vitamin D. Mammogram ordered. The patient was referred to GI for screening colonoscopy . The patient was instructed to perform monthly self-breast exams and schedule annual exam in a year. All questions answered and the patient verbalized understanding. Orders: Orders US pelvic and transvaginal Today D25.9 - Leiomyoma of uterus, unspecified MM screening mammo BI Today Z12.31 - Encounter for screening mammogram for malignant neoplasm of breast Referrals Gastroenterology Referral Z12.11 - Encounter for screening for malignant neoplasm of colon Coding Level of Care Code Est Pt Prev Care 40-64y(73483) Diagnoses Well woman exam Z01.419
== END 2023-01-27 12:55 | disposition home or self-care (01) ==
PROVIDERS: PCP Internal Medicine; Visit Provider Obstetrics & Gynecology
DX: Z01.419 Encounter for gynecological examination (general) (routine) without abnormal findings (principal)
CPT/HCPCS: 99396

== ENCOUNTER 2023-01-27 12:26 | Outpatient (REF) | payer MEDICAID, SELFPAY ==
[2023-01-29 22:39] LABS: HPV mRNA E6/E7 rflx Not Detected (Not Detected)
== END 2023-01-27 12:27 | disposition home or self-care (01) ==
LOC: HO.LNP 12:26
PROVIDERS: PCP Internal Medicine; Visit Provider Obstetrics & Gynecology
DX: Z01.419 Encounter for gynecological examination (general) (routine) without abnormal findings (principal); Z11.51 Encounter for screening for human papillomavirus (HPV)
CPT/HCPCS: 87624; 88142; 99396

== ENCOUNTER 2023-05-26 13:26 | Outpatient (AMB) | payer MEDICAID, SELFPAY ==
--- NOTE | 2023-05-26 13:39 | A.OFFVIS_ITS ---
Intake Intake Visit Reasons: 6m/PVR Intake Note: Patient presents for follow up [facility] Medications: Oxybutynin Blood Thinner: None PVR:0ml Carboy Filler Required: No Accompanied by: Self / Same As Patient Allergies No Known Allergies Allergy (Verified 05/26/23 21:12) Medication List - Last Reconciled 05/26/23 by SOULEYMANE Coon- atenolol 25 mg PO DAILY atorvastatin 40 mg PO DAILY cyclobenzaprine 10 mg PO BEDTIME gabapentin 300 mg PO TID meloxicam 15 mg PO DAILY mirabegron ER (Myrbetriq) 25 mg PO DAILY 90 days prazosin 2 mg PO BEDTIME venlafaxine ER 150 mg PO DAILY venlafaxine ER 75 mg PO DAILY HPI HPI Comments History of Present Illness Details Audra Mensah is a pleasant 47-year-old female patient of Dr. Gamez. She has a past medical history of HPV, depression, hypertension, neuropathy, and overactive bladder. She presents to the office today for follow-up regarding her overactive bladder and recent urinary tract infection. In discussion with the patient today she reports to be doing and feeling well. She reports compliance with 15 mg of oxybutynin daily as prescribed. She discusses experiencing dry mouth and constipation. Discussed likely related to oxybutynin. Previous workup has included a retroperitoneal ultrasound noting bilateral kidneys with calculi, lesions, or hydronephrosis noted. The bladder is well distended and normal. Bilateral ureteral jets are demonstrated. Pre void bladder volume is approximately 275 mL. Postvoid bladder volume is approximately 25 mL. She currently denies any UTI like symptoms. She denies urinary urgency, urinary frequency, incontinence, nocturia, hematuria, dysuria, foul smelling urine, changes to urinary stream, flank pain, fever, and or chills. She is happy with her current voiding para meters on 15 mg of oxybutynin however again is experiencing dry mouth and constipation. In office urinalysis results reviewed with the patient today. PVR 0 mL. 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 She otherwise offers no other issues or concerns at this time. [facility] Medical History Neuropathy Overactive bladder Cervical high risk HPV (human papillomavirus) test positive Hypertension History of depression History of nocturia Surgical History H/O thumb surgery History of carpal tunnel release of both wrists History of endometrial ablation Hx of tubal ligation Family History Mother History of breast cancer Maternal Grandmother History of breast cancer Social History Household Members: Spouse Housing: Apartment Alcohol intake: former Patient Tobacco Use Status: Former Tobacco user Cigarettes Per Day: 3 Years Smoked: 30 Substance Use Type: Marijuana Current occupational status: employed Current occupation: [employer] Sexual orientation: Straight/Heterosexual Gender identity: Female Review of Systems Const Reports no additional complaints Eyes Reports no additional complaints ENT Reports no additional complaints Card Reports as per HPI Resp Reports no additional complaints GI Reports no additional complaints Reports as per HPI Musc Reports no additional complaints Neuro Reports no additional complaints Psych Reports as per HPI Endo Reports no additional complaints Physical Exam Const General: cooperative, healthy appearing, comfortable, no acute distress, well developed, alert and awake Nutritional Appearance: average body habitus Orientation/consciousness: patient oriented x3 HEENT Head: Yes normal to inspection, Yes normocephalic and Yes atraumatic Ears: hearing grossly normal bilaterally Eyes General: appearance normal, both eyes and all related structures Neck Neck: Yes normal visual inspection and Yes trachea midline Chest Chest palpation & inspection: normal inspection of the chest Resp Effort & Inspection: normal respiratory effort and able to speak in complete sentences Cardio Rate: regular rate GI Inspection: Yes normal to inspection General: Yes no CVA tenderness Back/Spine/Pelvis Back: no CVA tenderness Cervical Spine: normal cervical lordosis Neuro General: patient oriented x3 Extrem General: Yes normal to inspection Psych Appearance: grossly normal and well kempt Mental Status: mental status grossly normal Speech and movement: Normal speech and movement present and Clear speech present; No Pressured speech present Affect: normal affect Thought process: Normal thought process present Thought content: Normal thought content present Insight: Good insight present (Psych) Judgement: Good judgement present (Psych) Office Procedures Post Void Residual Post Residual Void Post Void Residual (PVR): 0 [id number] Void Residual by ultrasound Results AMB Urinalysis, Automated UA Leukoctes 15 Kip/uL Last Edit by Mitali Paezyecenia Paez [facility] on 05/26/23 13:44 UA Nitrite Negative [facility] on 05/26/23 13: 44 UA Urobilinogen 0.2 mg/dL Last Edit [facility] on 4 13:44 UA Protein 15 mg/dL Last Edit by [facility] on 05/26/23 13:4 4 UA pH 6.0 Last Edit by [facility] on 05/26/23 13:44 UA Blood 10 Sunil/uL Last Edit by [facility] on 05/26/23 13:44 UA Specific [place] 1.020 Last Edit by Mitali Paezyecenia Paez [facility] on 13:44 UA Ketone Negative Last Edit [facility] on 05/26/23 13:4 4 UA Bilirubin 0 mg/dL Last Edit [facility] on 05/26/23 13: 44 UA Glucose 0 mg/dL Last Edit [facility], [facility] on 05/26/23 13:44 Results Reviewed Results Reviewed: Laboratory Last Values Urine pH (Auto) 6.0 05/26/23 13:39 Specific [place] (Auto) 1.020 05/26/23 13:39 Urine Protein (Auto) 15 mg/dL 05/26/23 13:39 Glucose (UA)(Auto) 0 mg/dL 05/26/23 13:39 Urine Ketones (Auto) Negative 05/26/23 13:39 Urine Blood (Auto) 10 Sunil/uL 05/26/23 13:39 Urine Nitrite (Auto) Negative 05/26/23 13:39 Urine Bilirubin (Auto) 0 mg/dL 05/26/23 13:39 Urine Urobilinogen (Auto) 0.2 mg/dL 05/26/23 13:39 Leukocyte Esterase (Auto) 15 Kip/uL 05/26/23 13:39 Assessment & Plan Assessment & Plan (1) Overactive bladder: Code(s): N32.81 - Overactive bladder (2) Lower urinary tract symptoms: Code(s): R39.9 - Unspecified symptoms and signs involving the genitourinary system Plan In office urinalysis results reviewed with the patient today; as noted above. PVR 0 mL. Stop oxybutynin. Start Myrbetriq as discussed and prescribed. She currently denies any bothersome urinary issues or concerns. Discussed possible near future in office cystoscopy and or urodynamics for further assessment evaluation. Discussed, educated, and stressed the importance of drinking plenty of water daily. Follow-up in 6 weeks with PVR; or sooner with any issues, concerns, and or questions. Orders: Orders AMB Urinalysis Automated Today R33.9 - Retention of urine, unspecified AMB Post Void Residual by ultrasound Today R33.9 - Retention of urine, unspecified Medications: New mirabegron ER (Myrbetriq) Can increase to 2 tabs daily after 4 weeks if continues with lower urinary tract symptoms as discussed 25 mg PO DAILY 90 days 90 tabs 1RF N32.81 - Overactive bladder, R35.1 - Nocturia Discontinued oxybutynin chloride ER Discontinued Reason: Doctor's Order 15 mg PO BID 30 days 60 tabs 0RF Patient Instructions: The patient had an opportunity to ask questions regarding the treatment plan. All questions were answered. Physical exam, labs, and imaging were discussed and reviewed in detail. As well as risks, benefits, and discussion of treatment choices. No major barriers to understanding were identified. The patient expre ssed understanding and agreement with the above treatment plan. The patient was made aware they should contact our office by phone for worsening of their current condition, the appearance of new symptoms, or with any questions or concerns. Compliance is encouraged with any medications and follow up testing that is ordered. It is a privilege to be allowed the opportunity to participate in? your urological care.? Again, if you have any questions or concerns If you have any questions or concerns please do not hesitate to contact me. The office is [phone]. This note is constructed using voice recognition software. While every effort has been made to ensure accuracy coke production heater errors may have been included. Yours sincerely, SOULEYMANE Coon-BC Coding Level of Care Code Est Pt Level 4 (39326) Diagnoses Overactive bladder N32.81 Lower urinary tract symptoms R39.9 CPT Codes Post Residual Void - PVR CPT Code: [id number] Void Residual by ultrasound ([id number])
== END 2023-05-26 14:15 | disposition home or self-care (01) ==
PROVIDERS: PCP Internal Medicine; Visit Provider Nurse Practitioner Family
DX: N32.81 Overactive bladder (principal); R39.9 Unspecified symptoms and signs involving the genitourinary system
CPT/HCPCS: 99214

== ENCOUNTER → 2023-05-26 13:26 | Outpatient (BNVA) | payer MEDICAID, SELFPAY | PROVIDERS: PCP Internal Medicine; Visit Provider Nurse Practitioner Family | DX: N32.81 Overactive bladder (principal); R39.9 Unspecified symptoms and signs involving the genitourinary system | CPT/HCPCS: 51798; 81003; 99212 ==

== ENCOUNTER 2023-12-10 13:38 | Outpatient (REF) | payer MEDICAID, SELFPAY ==
--- NOTE | ~2023-12-10 | XR_ITS ---
EXAMINATION: XR CERVICAL SPINE CLINICAL INFORMATION: Neck pain COMPARISON: Frontal and lateral views 07/23/16 TECHNIQUE: 3 views of the cervical spine were obtained. FINDINGS: No prevertebral soft tissue swelling. Straightening of expected lordosis. No acute fracture. No suspicious focal lesion or loss of volume. There is mild disc narrowing at C3/C4, C4/C5 and C5/C6. There are posterior osteophytes which encroach upon the spinal canal at C3/C4 and C5/C6. There are proliferative osteophytes anteriorly at C3/C4 and C4/C5 as well as C5/C6 and C6/C7. There is narrowing and sclerosis of the facets throughout the mid cervical spine. There is uncovertebral joint spurring greatest on the right at C4/C5 and C5/C6. There are prominent transverse processes greater on the right. In comparison with 07/23/16 the degenerative change has progressed XR/XR cervical spine 3V IMPRESSION: Progressive degenerative change. No acute fracture or subluxation. Electronically signed by: Levi Yates MD 12/13/2023 08:30 PM EDT
== END 2023-12-10 13:39 | disposition home or self-care (01) ==
LOC: HO.HHCX 13:38
PROVIDERS: Visit Provider Internal Medicine
DX: M54.2 Cervicalgia (principal)
CPT/HCPCS: 72040

== ENCOUNTER 2024-01-12 15:43 | Outpatient (REF) | payer MEDICAID, SELFPAY ==
--- NOTE | ~2024-01-12 | XR_ITS ---
EXAMINATION: XR chest 2V CLINICAL INFORMATION: r/o covid pna COMPARISON: None TECHNIQUE: 2 views of the chest FINDINGS: Clear lungs. No pneumothorax. No pleural effusion. Normal cardiomediastinal silhouette. XR/XR chest 2V IMPRESSION: Clear lungs. Electronically signed by: Wendy Buck MD 01/12/2024 08:10 PM EDT
== END 2024-01-12 15:44 | disposition home or self-care (01) ==
LOC: HO.HHCX 15:43
PROVIDERS: Visit Provider Nurse Practitioner Family
DX: U07.1 COVID-19 (principal)
CPT/HCPCS: 71046